=== PATIENT | female | born 1990 | race African-American/Black ===

== ENCOUNTER → 2016-05-18 | Day surgery (SDC) | payer OTHER ==
--- NOTE | 2016-05-17 10:59 | History & Physical Pre-Op ---
General Information and HPI History of Present Illness: Patient is a 26-year-old 5 para 2 with RYAN-2 on endocervical curettage. Allergies/Medications Allergies: Coded Allergies: MDX - SULFA (sulfonamide) (SULFA (SULFONAMIDE)) (Severe, HIVES 05/16/16) Home Med list Medroxyprogesterone Acetate (Depo-Provera) 150 MG/ML SYRINGE 1 ML IM Q3M CONTROL (Reported) Past History Medical History Tetanus Vaccine: 05/26/12 Surgical History Pertinent Surgical History: none (thanks) Review of Systems Review of Systems Constitutional: Reports: no symptoms. EENTM: Reports: no symptoms. Cardiovascular: Reports: no symptoms. Respiratory: Reports: no symptoms. GI: Reports: no symptoms. Genitourinary: Reports: no symptoms. Musculoskeletal: Reports: no symptoms (self-retaining). Skin: Reports: no symptoms. Neurological/Psychological: Reports: no symptoms (follow-up). Hematologic/Endocrine: Reports: no symptoms (surgeon). Immunologic/Allergic: Reports: no symptoms (and also associated with estim). All Other Systems: Reviewed and Negative Exam & Diagnostic Data Last 24 Hrs of Vital Signs/I&O HEENT: Normocephalic atraumatic Chest: Cardiovascular: Normal S1 and S2 Pelvic: Deferred for Extremities: No clubbing cyanosis or edema Assessment/Plan Assessment/Plan: RYAN-2 LEEP conization As Ranked By This Provider Problem List: 1. RYAN II (cervical intraepithelial neoplasia II)
[~2016-05-18] VITALS: Ht 167.6 cm; Wt 71.7 kg
[~2016-05-18] MED LIST: DEPO-PROVE150 MG/11 IM; IBUPROFEN800 MG PO; PRENATAL1 TA2 PO
--- NOTE | 2016-05-24 09:14 | Operative Report ---
Operative/Inv Procedure Report Surgery Date: 05/18/16 Name of Procedure: LEEP conization Pre-Operative Diagnosis: RYAN-2 Post-Operative Diagnosis: Pathology pending Estimated Blood Loss: less than 50ml Surgeon/[employer] Manager: CAMELIA WALSH MD Anesthesia: laryngeal mask airway Operative/Procedure Note Note: The patient was brought to the operating room and placed on the OR table in the dorsal supine position. She was given adequate anesthesia and repositioned in a modified dorsal lithotomy. She was prepped and draped in usual sterile fashion a weighted speculum was inserted into the vagina with help of the Allis clamp the cervix was injected with 1% lidocaine to have cc in each quadrant with epinephrine. 2 [id number] stay sutures were placed at 3 and 9:00 with 0 Polysorb in a [id number] fashion. The lid rubber coated speculum was inserted into the vagina and the cervix was held on tension throughout the case. A LEEP conization was placed from 6:00 to 12:00 and it was taken in 2 units the posterior lip and the anterior lip these were sent to pathology. A deeper top hat conization was performed into the endocervical canal and the 12 o'clock position was noted with a silk suture. An endocervical curettage was then performed and this was also sent to pathology. The base of the defect was coagulated using the ball electrode to good effect. Jose was placed on the defect as well and the stay sutures were cut hemostasis was good the patient was awakened and sent to recovery in good condition. All needle, sponge, and instrument counts are correct at the end of the procedure 2.
== END ==
LOC: STS 05:11
DX: N87.1 Moderate cervical dysplasia (principal)
CPT/HCPCS: 81025; 88305; 88307; J0131; J2250